=== PATIENT | male | born 1975 | race Caucasian/White ===

== ENCOUNTER 2020-04-23 16:08 | Outpatient (CLI) | payer BC, SELFPAY | END 2020-04-23 16:09 | disposition home or self-care (01) | LOC: ANHCOVIDVC 16:08 | PROVIDERS: PCP Nurse Practitioner Family | DX: Z23 Encounter for immunization (principal) | CPT/HCPCS: 0001A; 91300 ==

== ENCOUNTER 2020-05-14 13:53 | Outpatient (CLI) | payer BC, SELFPAY | END 2020-05-14 13:54 | disposition home or self-care (01) | LOC: ANHCOVIDVC 13:53 | PROVIDERS: PCP Nurse Practitioner Family | DX: Z23 Encounter for immunization (principal) | CPT/HCPCS: 0002A; 91300 ==